=== PATIENT | female | born 1990 | race Caucasian/White ===

== ENCOUNTER 2016-10-01 09:39 | Emergency (ER) | payer OTHER ==
[~2016-10-01] VITALS: Wt 58.6 kg
[~2016-10-01 09:39] MED LIST: ALBU8.5H3 INH; AZIT250T94 PO; GABA300C16 PO; HYDR-3720 PO; IBUP800T25 PO; INSU100C SQ; INSU100V23 SC; LANT3I SC
[2016-10-01 13:37] LABS: URINE BLOOD (Dip) POC 1+ (NEGATIVE)
[2016-10-01] MEDS ORDERED: NAPR-260 PO (13:38)
[2016-10-01] MEDS ORDERED: NPH SQ (13:38)
[2016-10-01] MEDS ORDERED: KETOROLAC 30 MG INJ IM STA (13:49)
[2016-10-01] MEDS ORDERED: OXYCODONE/ACETAMINOPHEN (5/325) TAB PO ONE (14:00)
[2016-10-01 14:06] VITALS: BP 129/79; PULSE 79; RESP 18; TEMP 98.6
--- NOTE | 2016-10-01 14:20 | ERD ---
ER Documentation Chief Complaint Date/Time DATE: 10/01/16 TIME: 14:19 Chief Complaint headache non traumatic and dizziness for the past month. bs 380.mild ap HPI 26-year-old woman presents with left-sided headache 1 month, she attributes her pain to a firm "ball" behind the left ear she has had no discharge from the site, no fevers or chills, no hearing loss, no dizziness, no chest pain or shortness of breath. Patient states she has had this headache on a regular basis for a few years. Patient also has a history of diabetes mellitus and has run out of her insulin for a few weeks now. ROS All systems reviewed and are negative except as per history of present illness. Medications Home Meds Active Scripts Insulin Human Nph (Novolin-N) 100 Units/Ml Susp, 2 UNIT SQ WITH MEALS, #1 VIAL 2 Refills Prov:MICHAEL GILBERT MD 10/01/16 Naproxen* (Naprosyn*) 500 Mg Tablet, 500 MG PO BID Y for PAIN AND/OR INFLAMMATION, #30 TAB Prov:MICHAEL GILBERT MD 10/01/16 Insulin Glargine* (Lantus*) 100 Unit/Ml Soln, 20 UNIT SC QHS, #1 VIAL Prov:NEO HECK PA-C 05/18/16 Insulin Lispro (Humalog) 100 Unit/1 Ml Cartridge, 100 UNIT SQ TID, #3 Prov:NEO HECK PA-C 05/18/16 Ibuprofen* (Motrin*) 800 Mg Tab, 800 MG PO TID, #30 TAB Prov:JAX HAGAN DO 11/04/15 Albuterol Sulfate* (Proair HFA*) 8.5 Gm Hfa.aer.ad, 2 PUFF INH Q4, #1 INHALER Prov:JAX HAGAN DO 11/04/15 Hydrocodone Bit-Acetaminophen* (Vidalia*) 7.5-325 Tablet, 2 TAB PO Q4H Y for PAIN , #20 TAB Prov:JAX HAGAN DO 11/04/15 Azithromycin* (Zithromax*) 250 Mg Tablet, 250 MG PO .SAGRARIO DIRECTED, #6 TAB TAKE 500 MG (2 TABS) THE FIRST DAY THEN 250 MG (1 TAB) DAYS 2-5 Prov:JAX HAGAN DO 11/04/15 Reported Medications Gabapentin* (Gabapentin*) 300 Mg Capsule, 300 MG PO BID Y for PAIN, #60 CAP 11/04/15 Insulin Regular, Human* (Novolin R*) 100 U/Ml Vial, 4 UNIT SC BID WITH MEALS, VIAL 11/04/15 Insulin Glargine* (Lantus*) 100 Unit/Ml Soln, 60 UNIT SC QHS, #1 VIAL 11/04/15 Allergies Allergies: Coded Allergies: No Known Allergy (Unverified , 05/18/16) PMhx/Soc Diabetes mellitus History of Surgery: Yes (Kidney as a child) Anesthesia Reaction: No Hx Neurological Disorder: No Hx Respiratory Disorders: No Hx Cardiac Disorders: No Hx Psychiatric Problems: No Hx Miscellaneous Medical Probl: Yes (DIABETES II) Hx Alcohol Use: No Hx Substance Use: No Hx Tobacco Use: No Smoking Status: Never smoker FmHx Family History: diabetes Physical Exam Vitals Vital Signs Date Time Temp Pulse Resp B/P Pulse Ox O2 Delivery O2 Flow Rate FiO2 10/01/16 14:06 98.6 79 18 129/79 100 10/01/16 09:46 98.8 90 21 132/84 100 Physical Exam GENERAL: Well-developed, well-nourished, well-hydrated, in no apparent distress , looks nontoxic in appearance HEENT: Moist mucous membranes, pink conjunctiva, no cervical spine tenderness or step-off deformities, no goiter, no jaundice or icterus, extraocular movements intact without pain. No submandibular induration, and no pharyngeal erythema NEURO: Alert and oriented 3, cranial nerves II through XII intact bilaterally, pupils equal round reactive to light, no focal deficits or facial asymmetry, sensation intact distally Strength 5/5 in upper and lower extremities bilaterally CARDIAC: Regular rate and rhythm, no murmurs rubs or gallops LUNGS: Clear bilaterally no wheezing crackles or stridor ABDOMEN: Soft nontender, no guarding, no rigidity, no rebound, no psoas sign no obturator sign. Normoactive bowel sounds SKIN: Warm and dry to touch, no abrasions, contusions, or hematomas, no lacerations, no ecchymosis, no target lesions, and without ulcers EXTREMITIES: No clubbing cyanosis or edema, calves are bilaterally symmetrical, no Homans sign, no popliteal cord sign. Distal pulses equal and bilateral PSYCH: Normal affect without agitation or irritability Results 24 hrs Laboratory Tests Test 10/01/16 09:52 10/01/16 13:38 Bedside Glucose 380mg/dL Bedside Urine Blood 1+ Bedside Urine Glucose (UA) 0.50% Bedside Urine Ketones (LAB) Negative Bedside Urine Leukocyte Esterase (L Negative Bedside Urine Nitrite (LAB) Negative Bedside Urine Protein (LAB) 3+ Bedside Urine pH (LAB) 5.5 Current Medications Medications (Trade) Dose Ordered Sig/Jalyn Route PRN Reason Start Time Stop Time Status Last Admin Dose Admin Oxycodone/ Acetaminophen (Percocet (5/ 325)) 1 tab ONCE ONCE PO 10/01/16 14:00 10/01/16 14:01 DC Ketorolac Tromethamine (Toradol) 30 mg ONCE STAT IM 10/01/16 13:49 10/01/16 13:50 DC 10/01/16 13:54 Procedures/MDM I order Percocet 1 tablet p.o. with good response. test was negative and urine dip was negative for infection. Blood sugar was about 300 and there are no signs or symptoms of serious illness or DKA, I agreed to fill her prescription of Novolin insulin. Patient can be managed as an outpatient I recommended she follow-up with her PMD if symptoms continue. Differential diagnoses considered, included but not limited to acute coronary syndrome, pulmonary embolism, aortic dissection, abdominal aortic aneurysm, sepsis, stroke, meningitis, encephalitis, pneumonia, appendicitis, cholecystitis , bowel obstruction, pyelonephritis, nephrolithiasis, cystitis, as well as metabolic, hematologic, and electrolyte abnormalities. As well as abscess, cellulitis, fractures, and dislocations. Patient feels much better at this time, and vital signs are normal, symptoms have improved. I did give strict instructions to return to the ED if symptoms continue or worsen, patient will otherwise follow-up with primary care physician. Patient understood instructions and agreed to plan. Departure Diagnosis: Primary Impression: Headache Headache type: tension-type Headache chronicity pattern: chronic headache Intractability: not intractable Qualified Code: G44.229 - Chronic tension- type headache, not intractable Additional Impression: Hyperglycemia Condition: Good Patient Instructions: Hyperglycemia (High Blood Sugar), Headache, Tension MICHAEL GILBERT MD Oct 01, 2016 14:20
== END 2016-10-01 14:08 | disposition home or self-care (01) ==
LOC: E/R 09:39
DX: G44.229 Chronic tension-type headache, not intractable (principal); E11.65 Type 2 diabetes mellitus with hyperglycemia; Z79.4 Long term (current) use of insulin
CPT/HCPCS: 81003; 82962; 96372; J1885; Z7502

== ENCOUNTER 2017-11-02 22:12 | Inpatient (IN) | END 2017-11-05 16:25 | disposition home or self-care (01) | DRG 74 ==

== ENCOUNTER 2018-05-21 21:30 | Emergency (ER) | END 2018-05-22 01:30 | disposition home or self-care (01) ==

== ENCOUNTER 2018-06-20 09:02 | Emergency (ER) | END 2018-06-20 13:01 | disposition home or self-care (01) ==